=== PATIENT | female | born 1975 | race African-American/Black ===

== ENCOUNTER 2016-05-02 07:12 | Emergency (ER) | payer OTHER ==
[~2016-05-02] VITALS: Ht 160 cm; Wt 132.0 kg
[2016-05-02] MEDS ORDERED: HYDROCHLOROTHIA25 M2 PO (07:46)
[2016-05-02] MEDS ORDERED: CARVEDILOL25 MG PO (07:46)
[2016-05-02 08:46] VITALS: BP 158/92
[2016-06-03] MEDS ORDERED: IRON325 PO (08:23)
[2016-06-03] MEDS ORDERED: COREG25 MG PO (08:24)
[2016-06-03] MEDS ORDERED: BIOTIN1 M1 PO (08:25)
[2016-06-03] MEDS ORDERED: VITAMIN D1000 UNI1 PO (08:25)
[2016-06-03] MEDS ORDERED: AMITRIPTYLINE H50 M2 PO (08:25)
[2016-06-03] MEDS ORDERED: DIOVAN320 MG PO (08:26)
[2016-06-03] MEDS ORDERED: ALEVE220 MG PO (08:46)
== END 2016-05-02 08:48 | disposition home or self-care (01) ==
LOC: ER 07:12
DX: G44.209 Tension-type headache, unspecified, not intractable (principal); I16.0 Hypertensive urgency; Z88.8 Allergy status to other drugs, medicaments and biological substances

== ENCOUNTER → 2016-06-09 | Outpatient (CLI) | payer OTHER ==
[~2016-06-09] VITALS: Ht 160 cm; Wt 130.1 kg
[~2016-06-09] MED LIST: ALEVE220 MG PO; AMITRIPTYLINE H50 M2 PO; BIOTIN1 M1 PO; CARVEDILOL25 MG PO; COREG25 MG PO; DIOVAN320 MG PO; HYDROCHLOROTHIA25 M2 PO; IRON325 PO; VITAMIN D1000 UNI1 PO
--- NOTE | ~2016-06-09 | HPC ---
[facility] [place] [address] PAIN MANAGEMENT CONSULTATION Name: WANDA SCHILLING Room #: REG REED Schroeder.#: [id number] Admission: 06/09/16 Attend Phys: Lauren Sky MD Discharge: Date of : 73 Report #: [id number] THIS REPORT FOR: //name// CC: Lauren Fonseca MD DATE OF SERVICE: 06/09/2016 FOLLOWUP COMPLAINT: Pain radiating down the right posterior leg with numbness and tingling. FOLLOWUP HISTORY: The patient is a 40-year-old female who has been seen in the pain clinic in the past because of lumbar radiculopathy. She has undergone epidural injections in the past and gleaned benefits from these. She returned today indicating that she would like to proceed with an epidural steroid injection. Risks and benefits of spinal headache and other complications were reviewed with the patient and she would like to proceed. PHYSICAL EXAMINATION: Blood pressure is 153/97, pulse 69, respiratory rate 14, room air saturation is 99%. Height is 5 feet 3 inches, weight 130 kilograms, height 160 cm, BMI is 50.8. The patient has not fallen since we saw her last. IMPRESSION: Lumbar radiculopathy involving the right lower L5-S1 dermatomal distribution. RECOMMENDATIONS: We discussed treatment options with the patient. Risks and benefits of an epidural steroid injection were again reviewed. Possible complications were discussed, and the patient elects to proceed. PROCEDURE NOTE: The patient was placed in the prone position. Fluoroscopy was used to identify the L5-S1 interspace. This area had been sterilely prepped with Betadine and infiltrated with 0.25% bupivacaine. Total of 80 mg Depo-Medrol, 40 mg triamcinolone and 2 mL of 0.25% bupivacaine was injected. The patient tolerated the procedure well. There were no complications. She remained in the pain clinic for an appropriate amount of time. Total fluoroscopy time was 32 seconds. A 5-cm needle was used. We would like to thank you for letting us participate in her care. We hope she continues to improve. <ELECTRONICALLY SIGNED> By: Lauren Sky MD 06/11/16 [id number] Lauren Sky MD /nt
[2016-06-09 08:05] VITALS: BP 153/97
== END ==
LOC: PAIN 07:11
DX: M54.16 Radiculopathy, lumbar region (principal); I10 Essential (primary) hypertension; F32.9 Major depressive disorder, single episode, unspecified